=== PATIENT | male | born 1965 | race Caucasian/White ===

== ENCOUNTER → 2024-01-17 13:10 | Outpatient (REF) | payer BC, SELFPAY | LOC: MRI 3T 13:10 | PROVIDERS: ATTENDING PHYSICIAN Urology; FAMILY PHYSICIAN Family Medicine | DX: R97.20 Elevated prostate specific antigen [PSA] (principal) | CPT/HCPCS: 72197; A9575 ==

== ENCOUNTER → 2025-03-15 13:45 | Outpatient (REF) | payer BC, SELFPAY | LOC: DHSLP 13:45 | PROVIDERS: ATTENDING PHYSICIAN Internal Medicine; FAMILY PHYSICIAN Family Medicine | DX: G47.30 Sleep apnea, unspecified (principal); R06.83 Snoring | CPT/HCPCS: 95800 ==